=== PATIENT | female | born 1990 | race Caucasian/White ===

== ENCOUNTER 2016-09-11 17:05 | Emergency (ER) | payer BC ==
[2016-09-11] MEDS ORDERED: ONDANSETRON 4 MG VIAL ONE (18:00)
[2016-09-11] MEDS ORDERED: SODIUM CHLORIDE 0.9% 1,000 ML ONE (18:00)
[2016-09-11] MEDS ORDERED: SODIUM CHLORIDE 0.9% 100 ML IV ONE (20:49)
[2016-09-11] MEDS ORDERED: CEFTRIAXONE 1 GM VIAL ONE (20:49)
== END 2016-09-11 21:38 | disposition home or self-care (01) ==
LOC: ER 17:05
DX: O26.891 Other specified pregnancy related conditions, first trimester (principal); O23.11 Infections of bladder in pregnancy, first trimester; Z3A.08 8 weeks gestation of pregnancy
CPT/HCPCS: 36415; 76817; 80053; 81001; 83690; 84702; 84703; 85025; 87088; 87491; 87591; 87800; 96361; 96365; 96375